=== PATIENT | male | born 1960 | race Caucasian/White ===

== ENCOUNTER 2019-05-21 17:40 | Emergency (ER) | payer BC ==
[2019-05-21] MEDS ORDERED: Sodium Chloride 0.9% 10 ML Syringe FLUSH PRN (17:46)
[2019-05-21] MEDS ORDERED: Iopamidol 612 MG/ML 50 ML SDV IVPUSH ONE (18:09)
--- NOTE | 2019-05-21 18:26 | EDM.PDOC ---
Scribed by Elis White 05/21/19 [id number] for Indio Kunz MD ED HPI GENERAL MEDICAL PROBLEM - General Chief Complaint: Chest Pain Stated Complaint: EKG OFF Time Seen by Provider: 05/21/19 17:48 Source of Information: Reports: Patient, RN, RN Notes Reviewed History Limitations: Reports: No Limitations - History of Present Illness INITIAL COMMENTS - FREE TEXT/NARRATIVE: Patient presented to ER by POV from home. Patient states that he received a phone call from [facility] stating that his EKG looked abnormal and he should go to the ER. He denies any chest pain, palpitations, shortness of breath, nausea or any other symptoms. He has history of coronary artery disease last NV approximately 1 month ago. He has cardiology appointment next Friday in [place]. Pt had an NV around 04/29/19 with a Troponin of 377.08. His f/u Troponin today in [place] was down to 0.19. Onset: Today Duration: Constant Location: Reports: Chest Quality: Reports: Ache Severity: Moderate Improves with: Reports: None Worsens with: Reports: None Associated Symptoms: Reports: No Other Symptoms - Related Data Allergies Allergy/AdvReac Type Severity Reaction Status Date / Time ertapenem [From Invanz] Allergy Swelling Verified 05/21/19 17:48 imipenem Allergy Swelling Verified 05/21/19 17:48 Home Meds: Home Meds Sertraline HCl 40 mg PO DAILY 03/29/19 [History] Zolpidem Tartrate [Zolpidem Tartrate ER] 12.5 mg PO DAILY 03/29/19 [History] atorvaSTATin Calcium [Atorvastatin Calcium] 80 mg PO DAILY 03/29/19 [History] lisinopriL [Lisinopril] 20 mg PO DAILY 03/29/19 [History] Acetaminophen 325 - 650 mg PO Q4HR PRN 04/28/19 [History] Aspirin [Adult Low Dose Aspirin EC] 81 mg PO DAILY 04/28/19 [History] Clopidogrel [Plavix] 75 mg PO DAILY 04/28/19 [History] LORazepam 0.5 mg PO ASDIRECTED PRN 04/28/19 [History] Metoprolol Succinate 25 mg PO DAILY 04/28/19 [History] Nitroglycerin 0.4 mg PO ASDIRECTED PRN 04/28/19 [History] Past Medical History HEENT History: Reports: Cataract, Impaired Vision Cardiovascular History: Reports: [place]pass, [place], Stents Other Cardiovascular History: [place] 03/29/2019 Gastrointestinal History: Reports: Bowel Obstruction, GERD, Other (See Below) Other Gastrointestinal History: Hernia with mess Genitourinary History: Reports: Prostate Disorder Psychiatric History: Reports: Depression Dermatologic History: Reports: Other (See Below) 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 - Past Surgical History HEENT Surgical History: Reports: Cataract Surgery Cardiovascular Surgical History: Reports: Coronary Artery Bypass, Percutaneous Transluminal Angioplasty GI Surgical History: Reports: Cholecystectomy Social & Family History - Family History Family Medical History: Noncontributory - Caffeine Use Caffeine Use: Reports: Coffee - Living Situation & Occupation Living situation: Reports: ED ROS GENERAL - Review of Systems Review Of Systems: Comprehensive ROS is negative, except as noted in HPI. ED EXAM, GENERAL - Physical Exam Exam: See Below Exam Limited By: No Limitations General Appearance: Alert, Obese Eye Exam: Bilateral Eye: EOMI, Normal Inspection, PERRL Ears: Normal External Exam, Normal Canal, Hearing Grossly Normal, Normal TMs Nose: Normal Inspection, Normal Mucosa, No Blood Throat/Mouth: Normal Inspection, Normal Lips, Normal Teeth, Normal Gums, Normal Oropharynx, Normal Voice, No Airway Compromise Head: Atraumatic, Normocephalic Neck: Normal Inspection, Supple, Non-Tender, Full Range of Motion Respiratory/Chest: No Respiratory Distress, Lungs Clear, Normal Breath Sounds, No Accessory Muscle Use, Chest Non-Tender Cardiovascular: Normal Peripheral Pulses, Regular Rate, Rhythm, No Edema, No Gallop, No JVD, No Murmur, No Rub GI/Abdominal: Normal Bowel Sounds, Soft, Non-Tender, No Organomegaly, No Distention, No Abnormal Bruit, No Mass (Male) Exam: Deferred Rectal (Males) Exam: Deferred Back Exam: Normal Inspection, Full Range of Motion, NT Extremities: Normal Inspection, Normal Range of Motion, Non-Tender, Normal Capillary Refill, No Pedal Edema Neurological: Alert, Oriented, CN II-XII Intact, Normal Cognition, Normal Gait, Normal Reflexes, No Motor/Sensory Deficits Psychiatric: Normal Affect, Normal Mood Skin Exam: Warm, Dry, Intact, Normal Color, No Rash EKG INTERPRETATION EKG Date: 05/21/19 Time: 17:50 Rhythm: Other (sinus rhythm) Rate (Beats/Min): 71 [place]: Normal P-Wave: Present (probable left atrial abnormamlity.) QRS: Other (RSR in V1 or V1, probably normal variant, inferior infarct age unknown.) ST-T: Normal QT: Normal Comparison: No Change Course - Vital Signs Last Recorded V/S: Last Vital Signs Temp 97.7 F 05/21/19 17:48 Pulse 76 05/21/19 17:48 Resp 20 05/21/19 17:48 BP 117/76 05/21/19 17:48 Pulse Ox 98 05/21/19 17:48 - Orders/Labs/Meds Orders: Active Orders 24 hr Category Date Time Status EKG 12 Lead [EKG Documentation Completion] [RC] STAT Care 05/21/19 17:47 Active Peripheral IV Care [RC] . DIRECTED Care 05/21/19 17:47 Active Chest 1V Frontal [CR] Stat Exams 05/21/19 17:47 Stop Req B-TYPE NATRIURETIC PEPTIDE,BNP [CHEM] Stat Lab 05/21/19 18:00 Received COMPREHENSIVE METABOLIC PN,CMP [CHEM] Stat Lab 05/21/19 18:00 Received INR,PT,PROTHROMBIN TIME [COAG] Stat Lab 05/21/19 18:00 Received PTT,PARTIAL THROMBOPLSTIN TIME [COAG] Stat Lab 05/21/19 18:00 Received TROPONIN I [CHEM] Stat Lab 05/21/19 18:00 Received Sodium Chloride 0.9% [Saline Flush] Med 05/21/19 17:46 Active 10 ml FLUSH ASDIRECTED PRN Peripheral IV Insertion Adult [OM.PC] Stat Oth 05/21/19 17:46 Ordered Medication Orders Sodium Chloride (Saline Flush) 10 ml FLUSH ASDIRECTED PRN PRN Reason: Keep Vein Open Last Admin: 05/21/19 17:59 Dose: 10 ml Labs: Laboratory Tests 05/21/19 Range/Units 18:00 WBC 7.1 (5.0-10.0) 10^3/uL RBC 4.62 (4.6-6.2) 10^6/uL Hgb 14.0 (14.0-18.0) g/dL Hct 41.2 (40.0-54.0) % MCV 89.2 (80-100) fL MCH 30.3 (27.0-34.0) pg MCHC 34.0 (33.0-35.0) g/dL Plt Count 234 (150-450) 10^3/uL Neut % (Auto) 56.8 (42.2-75.2) % Lymph % (Auto) 29.2 (20.5-50.1) % [place] % (Auto) 11.7 H (2-8) % Eos % (Auto) 2.0 (1.0-3.0) % Baso % (Auto) 0.3 (0.0-1.0) % Meds: Medications Generic Name Dose Route Start Last Admin Trade Name Freq PRN Reason Stop Dose Admin Sodium Chloride 10 ml 05/21/19 17:46 05/21/19 17:59 Saline Flush FLUSH 10 ml ASDIRECTED PRN Administration Keep Vein Open Discontinued Medications Generic Name Dose Route Start Last Admin Trade Name Freq PRN Reason Stop Dose Admin Iopamidol 50 ml 05/21/19 18:09 Isovue-300 (61%) IVPUSH 05/21/19 18:10 ONETIME ONE - Radiology Interpretation Free Text/Narrative:: Pt just had a chest x-ray a few hours ago in [place]. Departure - Departure Time of Disposition: 18:26 Disposition: Home, Self-Care 01 Condition: Good Clinical Impression: Encounter for medical screening examination, History of coronary artery disease Instructions: Medical Screening Exam Forms: ED Department Discharge Additional Instructions: No new EKG abnormalities found. Sepsis Event Note - Focused Exam Vital Signs: Vital Signs Temp Pulse Resp BP Pulse Ox 05/21/19 17:48 97.7 F 76 20 117/76 98 Date Exam was Performed: 05/21/19 Time Exam was Performed: 18:23 - My Orders Last 24 Hours: My Active Orders 05/21/19 17:46 Sodium Chloride 0.9% [Saline Flush] 10 ml FLUSH ASDIRECTED PRN Peripheral IV Insertion Adult [OM.PC] Stat 05/21/19 17:47 EKG 12 Lead [EKG Documentation Completion] [RC] STAT Peripheral IV Care [RC] . DIRECTED Chest 1V Frontal [CR] Stat 05/21/19 18:00 B-TYPE NATRIURETIC PEPTIDE,BNP [CHEM] Stat COMPREHENSIVE METABOLIC PN,CMP [CHEM] Stat INR,PT,PROTHROMBIN TIME [COAG] Stat PTT,PARTIAL THROMBOPLSTIN TIME [COAG] Stat TROPONIN I [CHEM] Stat - Assessment/Plan Last 24 Hours: My Active Orders 05/21/19 17:46 Sodium Chloride 0.9% [Saline Flush] 10 ml FLUSH ASDIRECTED PRN Peripheral IV Insertion Adult [OM.PC] Stat 05/21/19 17:47 EKG 12 Lead [EKG Documentation Completion] [RC] STAT Peripheral IV Care [RC] . DIRECTED Chest 1V Frontal [CR] Stat 05/21/19 18:00 B-TYPE NATRIURETIC PEPTIDE,BNP [CHEM] Stat COMPREHENSIVE METABOLIC PN,CMP [CHEM] Stat INR,PT,PROTHROMBIN TIME [COAG] Stat PTT,PARTIAL THROMBOPLSTIN TIME [COAG] Stat TROPONIN I [CHEM] Stat I have read and agree with the documentation that has been completed regarding this visit. By signing this record, I attest that the documentation was completed in my physical presence and is an accurate record of the encounter.
[2019-05-21 18:28] LABS: ANION GAP 10.9; CHLORIDE,CL 107 mmol/L (101-111); SODIUM,NA 140 mmol/L (135-145)
== END 2019-05-21 18:41 | disposition home or self-care (01) ==
LOC: DL.ED 17:40
DX: R07.9 Chest pain, unspecified (principal); I25.10 Atherosclerotic heart disease of native coronary artery without angina pectoris; K21.9 Gastro-esophageal reflux disease without esophagitis; F32.9 Major depressive disorder, single episode, unspecified; I25.2 Old myocardial infarction; Z88.8 Allergy status to other drugs, medicaments and biological substances; Z79.899 Other long term (current) drug therapy; Z79.82 Long term (current) use of aspirin; Z79.02 Long term (current) use of antithrombotics/antiplatelets; Z90.49 Acquired absence of other specified parts of digestive tract
CPT/HCPCS: 36415; 80053; 83880; 84484; 85025; 85610; 85730; 93005; 99285-25

== ENCOUNTER 2020-07-18 15:22 | Emergency (ER) | payer BC ==
[2020-07-18 16:34] LABS: ANION GAP 16.1 mEq/L (7-13); CHLORIDE,CL 102 mmol/L (98-107); SODIUM,NA 140 mmol/L (136-145)
[2020-07-18] MEDS ORDERED: HYDROmorphone 0.5 MG/0.5 ML Syringe IVPUSH ONE ×2 (16:43→17:23)
[2020-07-18] MEDS ORDERED: Ondansetron 4 MG/2 ML SDV IVPUSH ONE (16:43)
--- NOTE | 2020-07-18 16:50 | EDM.PDOC ---
Scribed by Elis White 07/18/20 6926 for Lizandro Elkins PA ED HPI GENERAL MEDICAL PROBLEM - General Chief Complaint: Chest Pain Stated Complaint: CHEST PAINS Time Seen by Provider: 07/18/20 16:41 Source of Information: Reports: Patient, RN, RN Notes Reviewed History Limitations: Reports: No Limitations - History of Present Illness INITIAL COMMENTS - FREE TEXT/NARRATIVE: This 60 yo male patient reports to the ED with left shoulder pain that began this morning. The patient reports he was reaching back to throw something into the garbage when he started to have increased pain. The patient reports his only medical history is for his heart attack. The patient denies any other problems at this time. The patient reports he has not taken anything for his pain at this time. The patient reports he had similar pains in his left hip over the past week, but today his hip feels fine. The patient was prescribed Tramadol for his hip, but he has not taken any today. Onset: Today Duration: Constant Location: Reports: Upper Extremity, Left (shoulder) Quality: Reports: Ache Severity: Moderate Improves with: Reports: None Worsens with: Reports: None Context: Reports: Other Associated Symptoms: Reports: No Other Symptoms Left Arm Pain Score (Numeric/FACES): 9 - Related Data Allergies Allergy/AdvReac Type Severity Reaction Status Date / Time ertapenem [From Invanz] Allergy Swelling Verified 07/18/20 15:32 imipenem Allergy Swelling Verified 07/18/20 15:32 Home Meds: Home Meds Sertraline HCl 40 mg PO DAILY 03/29/19 [History] Zolpidem Tartrate [Zolpidem Tartrate ER] 12.5 mg PO DAILY 03/29/19 [History] atorvaSTATin Calcium [Atorvastatin Calcium] 80 mg PO DAILY 03/29/19 [History] lisinopriL [Lisinopril] 20 mg PO DAILY 03/29/19 [History] Acetaminophen 325 - 650 mg PO Q4HR PRN 04/28/19 [History] Aspirin [Adult Low Dose Aspirin EC] 81 mg PO DAILY 04/28/19 [History] Clopidogrel [Plavix] 75 mg PO DAILY 04/28/19 [History] LORazepam 0.5 mg PO ASDIRECTED PRN 04/28/19 [History] Metoprolol Succinate 25 mg PO DAILY 04/28/19 [History] Nitroglycerin 0.4 mg PO ASDIRECTED PRN 04/28/19 [History] Past Medical History HEENT History: Reports: Cataract, Impaired Vision Cardiovascular History: Reports: [place]pass, [place], Stents Other Cardiovascular History: [place] 03/29/2019 Respiratory History: Reports: None Gastrointestinal History: Reports: Bowel Obstruction, GERD, Other (See Below) Other Gastrointestinal History: Hernia with mess Genitourinary History: Reports: Prostate Disorder Other Genitourinary History: Patient reports recent MRI r/t masses on kidney Musculoskeletal History: Reports: None Neurological History: Reports: None Psychiatric History: Reports: Depression Endocrine/Metabolic History: Reports: Obesity/BMI 30+ Hematologic History: Reports: None Immunologic History: Reports: None Oncologic (Cancer) History: Reports: None Dermatologic History: Reports: Other (See Below) 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 - Infectious Disease History Infectious Disease History: Reports: None - Past Surgical History Head Surgeries/Procedures: Reports: None HEENT Surgical History: Reports: Cataract Surgery Cardiovascular Surgical History: Reports: Coronary Artery Bypass, Percutaneous Transluminal Angioplasty GI Surgical History: Reports: Cholecystectomy Social & Family History - Family History Family Medical History: No Pertinent Family History - Tobacco Use Tobacco Use Status *Q: Never Tobacco User - Caffeine Use Caffeine Use: Reports: Coffee - Recreational Drug Use Recreational Drug Use: No - Living Situation & Occupation Living situation: Reports: ED ROS GENERAL - Review of Systems Review Of Systems: Comprehensive ROS is negative, except as noted in HPI. ED EXAM, GENERAL - Physical Exam Exam: See Below Exam Limited By: No Limitations General Appearance: Alert, WD/WN, Moderate Distress Eye Exam: Bilateral Eye: EOMI, Normal Inspection, PERRL Ears: Normal External Exam, Normal Canal, Hearing Grossly Normal, Normal TMs Nose: Normal Inspection, Normal Mucosa, No Blood Throat/Mouth: Normal Inspection, Normal Lips, Normal Teeth, Normal Gums, Normal Oropharynx, Normal Voice, No Airway Compromise Head: Atraumatic, Normocephalic Neck: Normal Inspection, Supple, Non-Tender, Full Range of Motion Respiratory/Chest: No Respiratory Distress, Lungs Clear, Normal Breath Sounds, No Accessory Muscle Use, Chest Non-Tender Cardiovascular: Normal Peripheral Pulses, Regular Rate, Rhythm, No Edema, No Gallop, No JVD, No Murmur, No Rub GI/Abdominal: Normal Bowel Sounds, Soft, Non-Tender, No Organomegaly, No Distention, No Abnormal Bruit, No Mass (Male) Exam: Deferred Rectal (Males) Exam: Deferred Back Exam: Normal Inspection, Full Range of Motion, NT Extremities: Arm Pain (left shoulder pain, increased pain to the left lateral shoulder with palpation) Neurological: Alert, Oriented, CN II-XII Intact, Normal Cognition, Normal Gait, Normal Reflexes, No Motor/Sensory Deficits Psychiatric: Normal Affect, Normal Mood Skin Exam: Warm, Dry, Intact, Normal Color, No Rash Lymphatic: No Adenopathy #1 Interpretation EKG Date: 07/18/20 Time: 15:32 Rhythm: Other (sinus rhythm) Rate (Beats/Min): 82 [place]: Normal P-Wave: Present QRS: Normal ST-T: Normal QT: Normal Comparison: No Change Course - Vital Signs Last Recorded V/S: Last Vital Signs Temp 36.8 C 07/18/20 15:33 Pulse 88 07/18/20 15:33 Resp 20 07/18/20 15:33 BP 131/77 07/18/20 15:33 Pulse Ox 97 07/18/20 15:33 - Orders/Labs/Meds Orders: Active Orders 24 hr Category Date Time Status EKG Documentation Completion [RC] STAT Care 07/18/20 15:41 Active CULTURE BLOOD [BC] Stat Lab 07/18/20 16:33 Received HYDROmorphone [Dilaudid] Med 07/18/20 17:23 Once 0.5 mg IVPUSH ONETIME ONE DME for Discharge [COMM] Urgent Oth 07/18/20 17:23 Ordered Labs: Laboratory Tests 07/18/20 07/18/20 07/18/20 Range/Units 15:40 15:40 15:40 WBC 11.2 H (5.0-10.0) 10^3/uL RBC 5.01 (4.6-6.2) 10^6/uL Hgb 14.9 (14.0-18.0) g/dL Hct 44.7 (40.0-54.0) % MCV 89.2 (80-100) fL MCH 29.7 (27.0-34.0) pg MCHC 33.3 (33.0-35.0) g/dL Plt Count 257 (150-450) 10^3/uL Neut % (Auto) 77.2 H (42.2-75.2) % Lymph % (Auto) 13.1 L (20.5-50.1) % [place] % (Auto) 8.7 H (2-8) % Eos % (Auto) 0.7 L (1.0-3.0) % Baso % (Auto) 0.3 (0.0-1.0) % Sodium 140 (136-145) mmol/L Potassium 4.1 (3.5-5.1) mmol/L Chloride 102 (98-107) mmol/L Carbon Dioxide 26 (21-32) mmol/L Anion Gap 16.1 H (7-13) mEq/L BUN 22 H (7-18) mg/dL Creatinine 1.82 H (0.70-1.30) mg/dL Est Cr Clr Drug Dosing TNP Estimated GFR (MDRD) 38 BUN/Creatinine Ratio 12.1 (No establ ref range) Glucose 101 H (70-99) mg/dL Lactic Acid 1.3 (0.4-2.0) mmol/L Calcium 9.2 (8.5-10.1) mg/dL Total Bilirubin 0.7 (0.2-1.0) mg/dL AST 29 (15-37) U/L ALT 38 (16-63) U/L Alkaline Phosphatase 71 (46-116) U/L Troponin I < 0.017 (0.000-0.056) ng/mL Total Protein 7.7 (6.4-8.2) g/dL Albumin 4.0 (3.4-5.0) g/dL Globulin 3.7 Albumin/Globulin Ratio 1.1 Meds: Medications Discontinued Medications Generic Name Dose Route Start Last Admin Trade Name Freq PRN Reason Stop Dose Admin Hydromorphone HCl 0.5 mg 07/18/20 16:43 07/18/20 16:53 Hydromorphone 0.5 Mg/0.5 Ml Syringe IVPUSH 07/18/20 16:44 0.5 mg ONETIME ONE Administration Ondansetron HCl 4 mg 07/18/20 16:43 07/18/20 16:51 Ondansetron 4 Mg/2 Ml Sdv IVPUSH 07/18/20 16:44 4 mg ONETIME ONE Administration Departure - Departure Time of Disposition: 17:24 Disposition: Home, Self-Care 01 Condition: Fair Clinical Impression: Left shoulder strain Qualifiers: Encounter type: initial encounter Qualified Code(s): S46.912A - Strain of unspecified muscle, fascia and tendon at shoulder and upper arm level, left arm, initial encounter Instructions: Shoulder Sprain Forms: ED Department Discharge Care Plan Goals: Discussed the history examination, lab, EKG and x-ray results with the patient and family. The patient was given IV Zofran (for nausea) and IV Dilaudid x2. The patient was placed in a left shoulder immobilizer while in the ED. The patient was encouraged to take his Tramadol for temporary symptom relief. The patient should follow-up with his primary care facility for continued evaluation and further management. If the patient has any additional symptoms or concerns, the patient should either return to the emergency department or visit his primary care facility. Sepsis Event Note (ED) - Evaluation Sepsis Screening Result: No Definite Risk - Focused Exam Vital Signs: Vital Signs Temp Pulse Resp BP Pulse Ox 07/18/20 15:33 36.8 C 88 20 131/77 97 - My Orders Last 24 Hours: My Active Orders 07/18/20 15:41 EKG Documentation Completion [RC] STAT 07/18/20 16:33 CULTURE BLOOD [BC] Stat 07/18/20 17:23 HYDROmorphone [Dilaudid] 0.5 mg IVPUSH ONETIME ONE DME for Discharge [COMM] Urgent - Assessment/Plan Last 24 Hours: My Active Orders 07/18/20 15:41 EKG Documentation Completion [RC] STAT 07/18/20 16:33 CULTURE BLOOD [BC] Stat 07/18/20 17:23 HYDROmorphone [Dilaudid] 0.5 mg IVPUSH ONETIME ONE DME for Discharge [COMM] Urgent I have read and agree with the documentation that has been completed regarding this visit. By signing this record, I attest that the documentation was completed in my physical presence and is an accurate record of the encounter.
--- NOTE | 2020-07-18 17:14 | CR ---
PROCEDURE INFORMATION: Exam: XR Left Shoulder Exam date and time: 07/18/2020 4:49 PM Age: 60 years old Clinical indication: Pain; Shoulder; Left; Additional info: Left shoulder pain TECHNIQUE: Imaging protocol: XR Left shoulder. Views: 2 or more views. COMPARISON: No relevant prior studies available. FINDINGS: Bones/joints: Normal. Soft tissues: Normal. IMPRESSION: No acute findings.
== END 2020-07-18 17:45 | disposition home or self-care (01) ==
LOC: DL.ED 15:22
DX: S46.912A Strain of unspecified muscle, fascia and tendon at shoulder and upper arm level, left arm, initial encounter (principal); E66.9 Obesity, unspecified; I25.2 Old myocardial infarction; Z95.5 Presence of coronary angioplasty implant and graft; Z79.82 Long term (current) use of aspirin; Z79.02 Long term (current) use of antithrombotics/antiplatelets; Z79.899 Other long term (current) drug therapy; Z88.8 Allergy status to other drugs, medicaments and biological substances; X58.XXXA Exposure to other specified factors, initial encounter
CPT/HCPCS: 36415; 73030-LT; 80053; 83605; 84484; 85025; 87040; 93005; 96374; 96375; 96376; 99283; 99284-25; J1170; J2405